=== PATIENT | female | born 1950 | race African-American/Black ===

== ENCOUNTER 2017-06-18 12:35 | Emergency (ER) | payer MEDICARE, OTHER ==
[2017-06-18] MEDS ORDERED: CLONIDINE HCL 0.1 MG TABLET PO ONE (13:04)
--- NOTE | 2017-06-18 13:08 | ER Document Report ---
ED Medical Screen (RME) - General Chief Complaint: Dizziness Stated Complaint: DIZZINESS Time Seen by Provider: 06/18/17 13:00 Notes: This 67-year-old female patient comes emergency room complaining of dizziness and nausea which started this morning shortly after taking 2 Aleve for her arthritic left knee. At this time the dizziness has improved and may actually be gone. The nauseousness is much better to but she reports occasionally feeling a sensation like there is some epigastric discomfort wanting to come up. Her blood pressure is quite high, she does not take medication for blood pressure. She has been seen here a few years ago with systolic pressures in the 220 level , she states she was given blood pressure medication and her primary care provider stopped the medicine because her blood pressure was doing better. I have greeted and performed a rapid initial assessment of this patient. A comprehensive ED assessment and evaluation of the patient, analysis of test results and completion of the medical decision making process will be conducted by additional ED providers. TRAVEL OUTSIDE OF THE [place] IN LAST 30 DAYS: No - Related Data Allergies/Adverse Reactions: No Known Allergies Allergy (Unverified 11/26/11 14:01) Home Medications: Current Home Medications No Home Medications 06/18/17 [History] Past Medical History - Social History Chew tobacco use (# tins/day): No Frequency of alcohol use: None Drug Abuse: None - Past Medical History Cardiac Medical History: Reports: Hx Hypertension Renal/ Medical History: Denies: Hx Peritoneal Dialysis Surgical Hx: Negative - Immunizations Hx Diphtheria, Pertussis, Tetanus Vaccination: Yes Physical Exam - Vital signs Vitals: Temp Pulse Resp BP Pulse Ox 97.9 F 79 17 193/102 H 97 06/18/17 12:40 06/18/17 12:40 06/18/17 12:40 06/18/17 12:40 06/18/17 12:40 Course - Vital Signs Vital signs: Temp Pulse Resp BP Pulse Ox 97.9 F 79 17 193/102 H 97 06/18/17 12:40 06/18/17 12:40 06/18/17 12:40 06/18/17 12:40 06/18/17 12:40
[2017-06-18 14:10] LABS: ABSOLUTE BASOPHILS # (AUTO) 0.1 10^3/uL (0.0-0.2); ABSOLUTE EOSINOPHILS # (AUTO) 0.1 10^3/uL (0.0-0.6); ABSOLUTE LYMPHOCYTES (AUTO) 1.7 10^3/uL (0.5-4.7); ABSOLUTE MONOCYTES (AUTO) 0.5 10^3/uL (0.1-1.4); ABSOLUTE NEUT (AUTO) 6.5 10^3/uL (1.7-8.2); BASOPHILS % (AUTO) 0.8 % (0-2); HEMATOCRIT 45.6 % (36.0-47.0); HEMOGLOBIN 15.4 g/dL (12.0-15.5); HGB HCT DIFFERENCE 0.6; LYMPHOCYTES % (AUTO) 19.3 % (13-45); MEAN CORPUSCULAR HEMOGLOBIN 32.1 pg (27.0-33.4); MEAN CORPUSCULAR HGB CONC 33.7 g/dL (32.0-36.0); MEAN CORPUSCULAR VOLUME 95 fl (80-97); MONOCYTES % (AUTO) 5.1 % (3-13); RED CELL DISTRIBUTION WIDTH 12.7 % (11.5-14.0); SEGMENTED NEUTROPHILS % (AUTO) 73.8 % (42-78); WHITE BLOOD COUNT 8.8 10^3/uL (4.0-10.5)
--- NOTE | 2017-06-18 14:25 | ER Document Report ---
ED General - General Chief Complaint: Dizziness Stated Complaint: DIZZINESS Time Seen by Provider: 06/18/17 13:00 Notes: 59-year-old female complains of "I just want to get my pressure down." She states that she has hypertension is been seen by in the past but is noncompliant with her meds because she has not seen her doctor. This morning she took 2 Aleve for knee pain and then had nonspecific dizziness peripheral visual spots and head pressure. This is gotten better since she has been to the ED and was given clonidine in triage. She has no chest pain focal neurologic symptoms and now feels much better. No issues with gait. No chest pain or pressure. TRAVEL OUTSIDE OF THE [place] IN LAST 30 DAYS: No - Related Data Allergies/Adverse Reactions: No Known Allergies Allergy (Unverified 11/26/11 14:01) Past Medical History - General Information source: Patient - Social History Smoking Status: Never Smoker Chew tobacco use (# tins/day): No Frequency of alcohol use: None Drug Abuse: None Family History: None Patient has suicidal ideation: No Patient has homicidal ideation: No - Past Medical History Cardiac Medical History: Reports: Hx Hypertension Renal/ Medical History: Denies: Hx Peritoneal Dialysis Surgical Hx: Negative - Immunizations Hx Diphtheria, Pertussis, Tetanus Vaccination: Yes Review of Systems - Review of Systems Notes: REVIEW OF SYSTEMS GEN: Denies fever, chills, weight loss ENT: Denies sore throat, nasal discharge, ear pain EYES: Denies blurry vision, eye pain, discharge CV: Denies chest pain, palpitations, edema RESP: Denies cough, shortness of breath, wheezing GI: Denies abdominal pain, nausea, vomiting, diarrhea MSK: Denies joint pain/swelling, edema, SKIN: Denies rash, skin lesions LYMPH: Denies swollen glands/lymph nodes NEURO: Headache PSYCH: Denies depression, suicidal or homicidal ideation PHYSICAL EXAMINATION General: No acute distress, well-nourished Head: Atraumatic, normocephalic ENT: Mouth normal, oropharynx moist, no exudates or tonsillar enlargement Eyes: Conjunctiva normal, pupils equal, lids normal Neck: No JVD, supple, no guarding CVS: Normal rate, regular rhythm, no murmurs Resp: No resp distress, equal and normal breath sounds bilaterally GI: Nondistended, soft, no tenderness to palpation, no rebound or guarding Ext: No deformities, no edema, normal range of motion in upper and lower ext Back: No CVA or midline TTP Skin: No rash, warm Lymphatic: No lymphadeopathy noted Neuro: Awake, alert. Face symmetric. GCS 15. Normal gait no incoordination, strength grossly intact in all 4 extremity's. Normal sensation. Cranial nerve II through XII are intact. Physical Exam - Vital signs Vitals: Temp Pulse Resp BP Pulse Ox 97.9 F 79 17 193/102 H 97 06/18/17 12:40 06/18/17 12:40 06/18/17 12:40 06/18/17 12:40 06/18/17 12:40 Course - Re-evaluation Re-evalutation: 06/18/17 14:20 67-year-old female presents with resolved head pressure and dizziness in the setting of uncontrolled hypertension to 220. She has no signs and symptoms consistent with aortic dissection, congestive heart failure, acute coronary syndrome, or stroke. She is now a symptomatically after clonidine. Her pressure is on its way down now 193. She has for a primary care recommendation I will give her some referrals. I will start her on clonidine given that I do not have labs on I have discussed with the patient there likely diagnosis, aftercare plan, follow-up plans and my usual and customary return precautions. They verbalized understanding of this. 06/18/17 14:22 - Vital Signs Vital signs: Temp Pulse Resp BP Pulse Ox 97.9 F 79 17 193/102 H 97 06/18/17 12:40 06/18/17 12:40 06/18/17 12:40 06/18/17 12:40 06/18/17 12:40 - Laboratory Result Diagrams: 06/18/17 13:44 06/18/17 13:44 - EKG Interpretation by Me EKG shows normal: Sinus rhythm Rate: Normal - No acute ST or T-wave changes When compared to previous EKG there are: Previous EKG unavailable Discharge - Discharge Clinical Impression: Hypertension Qualifiers: Hypertension type: essential hypertension Qualified Code(s): I10 - Essential ( primary) hypertension Disposition: HOME, SELF-CARE Instructions: Dizziness ([facility]) Additional Instructions: Your blood pressure was out of control and this caused her symptoms. I am prescribing her blood pressure medication which I would like you to take exactly as prescribed. He must follow-up with a primary care within 2 weeks while taking this medication to assess her blood pressure. Prescriptions: Clonidine HCl [Catapres] 0.1 mg PO DAILY #30 tablet
[2017-06-18 14:26] LABS: ALANINE AMINOTRANSFERASE 25 U/L (9-52); ALBUMIN 4.2 g/dL (3.5-5.0); ALKALINE PHOSPHATASE 150 U/L (38-126); ANION GAP 10 (5-19); ASPARTATE AMINO TRANSFERASE 19 U/L (14-36); BILIRUBIN,DIRECT 0.4 mg/dL (0.0-0.4); BILIRUBIN,TOTAL 0.5 mg/dL (0.2-1.3); BLOOD UREA NITROGEN 13 mg/dL (7-20); CALCIUM 9.5 mg/dL (8.4-10.2); CARBON DIOXIDE 30 mmol/L (22-30); CHLORIDE 99 mmol/L (98-107); CREATINE KINASE 57 U/L (30-135); GLUCOSE 108 mg/dL (75-110); POTASSIUM 4.8 mmol/L (3.6-5.0); SODIUM 139.2 mmol/L (137-145); TOTAL PROTEIN 8.4 g/dL (6.3-8.2)
[2017-06-18 14:50] VITALS: BP 154/103
--- NOTE | 2017-06-18 19:12 | EKG REPORT ---
SEVERITY:- NORMAL ECG - SINUS RHYTHM : Confirmed by: Evelio Garvey MD 18-Jun-2017 19:12:01
== END 2017-06-18 14:48 | disposition home or self-care (01) ==
LOC: ER 12:35
DX: I10 Essential (primary) hypertension (principal); R42 Dizziness and giddiness
CPT/HCPCS: 93005; 99284; 36415; 82550; 85025; 80053; 84484; 93010; A9270